=== PATIENT | female | born 1985 | race Caucasian/White ===

== ENCOUNTER 2018-06-06 15:56 | Observation (INO) | payer OTHER, MEDICAID, SELFPAY ==
[2018-06-06] VITALS (13 sets, daily range): BP systolic 110–183; BP diastolic 75–115; PULSE 73–110; RESP 8–21; TEMP 35.3–36.4; O2SAT 94–100
--- NOTE | 2018-06-06 | DI.CT.S_ITS ---
PROCEDURE: CT HEAD/BRAIN WO CON INDICATIONS: ALTERED MENTAL STATUS TECHNIQUE: Noncontrast 4.5 mm thick angled axial sections acquired from the foramen magnum to the vertex, with coronal and sagittal reformats. For radiation dose reduction, the following was used: automated exposure control, adjustment of mA and/or kV according to patient size. COMPARISON: None. FINDINGS: Image quality: Excellent. CSF spaces: Basal cisterns are patent. No extra-axial fluid collections. Ventricles are normal in size and shape. Brain: No intracranial hemorrhage, mass, or mass effect. Muse-white matter interface is preserved. Skull and face: Calvarium and visualized facial bones are intact, without suspicious lesions. Sinuses: Visualized sinuses demonstrate a minimal air-fluid level within the visualized left maxillary sinus.. IMPRESSION: 1. No acute intracranial abnormality. 2. Minimal air-fluid level partially visualized in the left maxillary sinus suggestive of acute sinusitis. Dictated by: Anam Stinson M.D. on 06/06/2018 at 17:55 Approved by: Anam Stinson M.D. on 06/06/2018 at 17:56
[2018-06-06] MEDS: NALOXONE 0.4 MG/ML VIAL 2 MG NASAL (16:12)
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
[2018-06-06] MEDS: NALOXONE 1 MG/ML SYRINGE IV ×2 (16:38→18:14)
[2018-06-06] MEDS: SODIUM CHLORIDE 0.9% 1,000 ML 1000 ML IV (16:41)
--- NOTE | 2018-06-06 17:05 | PC.NURSE ---
Running note admission to present: Pt dropped off to ED. Pt initially unresponsive to all stimulation. Airway opened by RN. Pt w/ wet hair and wet skin and clothing. Cold to touch. Poor respiroatory effort. Sternal rub w/ increased responsiveness. Narcan 2 mg nasally (1 mg each nostril) w/ minimal responsiveness. Placed on monitor w/ CO2 monitoring. CO2 noted to be 50-70 despite rr 12-14. Continues to be poorly responsive. MD mo in to evaluate. Placed on 4 l nc oxygen. Continued to stimulate. Difficult to get IV r/t previous track valencia / scarring. #20g iv placed right foot. Unable to draw labs. Narcan 1 mg iv push given w/ good effect. Pt then awake. Disoriented to time, place. Oriented to person and gave us name and . Pt voided on bedpan. Noted glucose 3+. Pt states she is insulin dependent diabetic.
--- NOTE | 2018-06-06 17:49 | PC.NURSE ---
Accompanied patient on radiation monitor and oxygen to CT exam. Remained with patient for the duration of the procedure.
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
--- NOTE | 2018-06-06 18:22 | PC.NURSE ---
Pt becoming more drowsy, end tidal at 58-60. Provider notified. Narcan ordered and administered. Pt responding to Narcan. End tidal at 34.
--- NOTE | 2018-06-06 18:25 | PC.NURSE ---
1630 Placed Mazariegos catheter with temperature sensor. Temperature at 96.5 internally. Cecilia nagy warming initiated. Warmed IV fluids used. Pt internal temp now at 97.5.
[2018-06-06 18:27] LABS: Bacteria Urine Many (>30); Culture Indicated Urine Specimen Cultured; RBC Urine 5-10/HPF (0-5/HPF); Squamous Epithelial Cell Urine 0-1 /HPF; WBC Urine 5-10/HPF (0-5/HPF)
--- NOTE | 2018-06-06 18:28 | DI.RAD.S_ITS ---
PROCEDURE: XR CHEST 1V INDICATIONS: frothy sputum, ? aspiration, overdose. TECHNIQUE: One view of the chest was acquired. COMPARISON: None. FINDINGS: Surgical changes and devices: None. Lungs and pleura: No pleural effusions or pneumothorax. There are a few linear left cardiac opacities which may represent atelectasis or possible aspiration. Mediastinum: Mediastinal contours appear normal. Heart size is normal. Bones and chest wall: No suspicious bony lesions. Overlying soft tissues appear unremarkable. There is gaseous distention of the stomach. IMPRESSION: 1. Linear left retrocardiac opacities compatible with atelectasis or mild aspiration. Dictated by: Anam Stinson M.D. on 06/06/2018 at 20:08 Approved by: Anam Stinson M.D. on 06/06/2018 at 20:09
[2018-06-06] MEDS: NALOXONE IV (18:34)
[2018-06-06] MEDS: SODIUM CHLORIDE 0.9% IV (18:34)
[2018-06-06 18:50] LABS: Urine Amphetamines Positive (Negative); Urine Barbiturates Negative (Negative); Urine Benzodiazepines Positive (Negative); Urine Cocaine Negative (Negative); Urine MDMA Negative (Negative); Urine Methadone Negative (Negative); Urine Methamphetamines Positive (Negative); Urine Morphine/Opi cutoff 2000 Positive (Negative); Urine Oxycodone Positive (Negative); Urine Phencyclidine Negative (Negative); Urine Tetrahydrocannabinol Positive (Negative); Urine Tricyclic Antidepressant Negative (Negative)
[2018-06-06 20:06] LABS: Add Manual Diff / Slide Review NO; Basophils Percent Auto 0.6 % (0-2); Eosinophils Percent Auto 0.5 % (2-4); Hematocrit 32.1 % (36-46); Hemoglobin 10.7 g/dL (12.0-16.0); Lymphocytes Percent Auto 22.6 % (25-40); Mean Corpuscular HGB Conc 33.2 % (30-36); Mean Corpuscular Hemoglobin 27.7 PG (26-34); Mean Corpuscular Volume 83.3 fL (80-100); Monocytes Percent Auto 6.1 % (3-14); Neutrophils Absolute Auto 8200 /uL (3000-5900); Neutrophils Percent Auto 70.2 % (50-75); Platelet Count 293 X10^3/uL (150-400); Red Blood Cell Count 3.86 X10^6/uL (4.0-5.2); Red Cell Distribution Width 15.2 % (11.6-14.8); White Blood Cell Count 11.7 X10^3/uL (4.5-11.0)
--- NOTE | 2018-06-06 20:10 | PC.NURSE ---
Dr Zavala at bedside to perform femoral stick to obtain blood for lab. Pt tolerated well. Blood specimens sent to lab. Pressure held to R femoral art stick for 10 minutes, no active bleeding at this time.
[2018-06-06 20:20] LABS: Acetaminophen < 10 ug/mL (10-30); Alanine Aminotransferase 38 IU/L (9-52); Albumin 3.5 g/dL (3.5-5.0); Albumin Globulin Ratio 1.2 (1.0-2.8); Alkaline Phosphatase 99 U/L (38-126); Aspartate Aminotransferase 39 IU/L (14-36); Bilirubin Total 0.2 mg/dL (0.2-1.3); Blood Urea Nitrogen 20 mg/dL (7-17); Calcium 7.8 mg/dL (8.4-10.2); Carbon Dioxide 28 mmol/L (22-32); Chloride 102 mmol/L (98-107); Estimated Glomerular Filt Rate > 60.0 mL/min (>60); Ethanol (ETOH) < 10 mg/dL; Globulin 2.9 g/dL (1.7-4.1); Glucose 203 mg/dL (70-100); HEMOLYSIS < 15 (0-50); Potassium 4.1 mmol/L (3.4-5.1); Sodium 139 mmol/L (137-145); Total Protein 6.4 g/dL (6.3-8.2)
[2018-06-06 20:23] LABS: Salicylate < 1.0 mg/dL (<20)
--- NOTE | 2018-06-06 20:23 | PC.NURSE ---
Addendum entered by Bhargavi Macias R.N. 06/06/18 20:42: 2030 SANE nurse in with pt and construction technician. Original Note: activities therapist here. SANE nurse here.
[2018-06-06] MEDS: NALOXONE 1 MG/ML SYRINGE 2 MG IV (22:51)
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
[2018-06-06] MEDS: AZITHROMYCIN 250 MG TABLET 1000 MG PO (23:50)
[2018-06-06] MEDS: LEVONORGESTREL 1.5 MG TABLET PO (23:53)
[2018-06-07] VITALS (9 sets, daily range): BP systolic 102–144; BP diastolic 57–95; PULSE 90–108; RESP 12–20; TEMP 36.5–37.5; O2SAT 96–100; BMI 30.9
--- NOTE | 2018-06-07 02:39 | PC.ADMIT ---
Addendum entered by Cortney Foote R.N. 06/07/18 04:04: 0335 Influenza vaccine given, vaccine information sheet provided. Original Note: [address] Admission Note: The patient,Jonna Hughes,33 y/o, was given written information regarding hospital policies, unit procedures and contact persons. Patient's smoking status: Current every day smoker. Vital Signs - 8 hr 06/06/18 19:15 06/06/18 21:30 06/06/18 21:40 Temperature 97.6 F Pulse Rate 107 H 108 H 103 H Respiratory Rate 14 18 11 L Blood Pressure Blood Pressure [Left Arm] 130/98 H 120/108 H 110/75 Pulse Oximetry 100 95 100 06/06/18 23:00 06/07/18 00:15 06/07/18 00:30 Temperature 98 F Pulse Rate 104 H 106 H 104 H Respiratory Rate 14 15 20 Blood Pressure 140/95 H Blood Pressure [Left Arm] 112/82 Pulse Oximetry 100 98 98 0030 pt arrived to room 105 from the ER via a stretcher, able to stand pivot transfer herself to the bed. Pt is escorted by a pt advocate with [facility], her number will be on the chart, her name is Татьяна and she would be willing to assist in finding an appropriate intermediate for this pt on discharge, encouraged SS to consult with her. Pt arrives awake, alert, and generally can answer questions, occasionally will nod off briefly but wakes up. Pt reports that she is starting to remember the activities of the last two days, tearful at times. CIWA score 1, mild anxiety. Pt is concerned about going through withdrawal as she reports going through alcohol and drug withdrawals multiple times. Placed on contact precautions for MRSA in nares. Mazariegos patent. PICC HL at this time until meds arrive. Bed alarm, pt reports history of falls.
[2018-06-07] MEDS: CEFTRIAXONE 1 GM/50 ML FROZ.PIGGY IV (03:06)
[2018-06-07] MEDS: QUETIAPINE 25 MG TABLET 50 MG PO (03:06)
[2018-06-07] MEDS: cloNIDine 0.1 MG TABLET PO (03:07)
[2018-06-07] MEDS: MAGNESIUM SULFATE 2 GM, FOLIC ACID 1 MG, THIAMINE 100 MG, MULTIVITAMIN 10 ML in SODIUM ... IV (03:36)
[2018-06-07] MEDS: INFLUENZA VACCINE 0.5 ML SYRINGE IM (03:38)
[2018-06-07] MEDS: chlordiazePOXIDE 25 MG CAPSULE 50 MG PO (06:21)
[2018-06-07] MEDS: PANTOPRAZOLE 40 MG TABLET PO (06:22)
[2018-06-07 06:53] LABS: Add Manual Diff / Slide Review NO; Basophils Percent Auto 1.2 % (0-2); Eosinophils Percent Auto 1.9 % (2-4); Hematocrit 30.8 % (36-46); Hemoglobin 10.1 g/dL (12.0-16.0); Lymphocytes Percent Auto 32.7 % (25-40); Mean Corpuscular HGB Conc 32.7 % (30-36); Mean Corpuscular Hemoglobin 27.6 PG (26-34); Mean Corpuscular Volume 84.3 fL (80-100); Monocytes Percent Auto 5.8 % (3-14); Neutrophils Absolute Auto 5400 /uL (3000-5900); Neutrophils Percent Auto 58.4 % (50-75); Platelet Count 268 X10^3/uL (150-400); Red Blood Cell Count 3.65 X10^6/uL (4.0-5.2); Red Cell Distribution Width 14.6 % (11.6-14.8); White Blood Cell Count 9.3 X10^3/uL (4.5-11.0)
[2018-06-07 07:00] LABS: Alanine Aminotransferase 30 IU/L (9-52); Albumin 3.2 g/dL (3.5-5.0); Albumin Globulin Ratio 1.1 (1.0-2.8); Alkaline Phosphatase 85 U/L (38-126); Aspartate Aminotransferase 31 IU/L (14-36); BUN Creatinine Ratio 36.7 (6-22); Bilirubin Total 0.2 mg/dL (0.2-1.3); Blood Urea Nitrogen 22 mg/dL (7-17); Calcium 7.9 mg/dL (8.4-10.2); Carbon Dioxide 27 mmol/L (22-32); Chloride 103 mmol/L (98-107); Estimated Glomerular Filt Rate > 60.0 mL/min (>60); Globulin 2.8 g/dL (1.7-4.1); Glucose 287 mg/dL (70-100); HEMOLYSIS < 15 (0-50); Potassium 4.1 mmol/L (3.4-5.1); Sodium 137 mmol/L (137-145)
[2018-06-07] MEDS: INSULIN ASPART 100 UNIT/ML INSULN PEN SUBCUT ×5 (08:37→17:51)
[2018-06-07] MEDS: HEPARIN 5,000 UNIT/ML VIAL 5000 UNIT SUBCUT ×2 (08:37→20:52)
[2018-06-07] MEDS: NYSTATIN POWDER 30 GM 1 APPLIC TOP (08:40)
[2018-06-07] MEDS: INSULIN GLARGINE 100 UNIT/ML 3ML PEN 20 UNIT SUBCUT (10:01)
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
--- NOTE | 2018-06-07 17:53 | PC.NURSE ---
Pt to be transferred to acute care unit, report called to Isabel BEDOLLA. VSS. Drowsy but easily arousable. Eating dinner.
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
--- NOTE | 2018-06-07 19:02 | PC.NURSE ---
1820- Patient arrived to room 228 alert and cooperative. Denies discomfort at this time. Will monitor.
[2018-06-07] MEDS: DOCUSATE 100 MG CAPSULE PO (20:54)
[2018-06-08 00:15] VITALS: BP 130/89; PULSE 107; RESP 19; TEMP 36.7; O2SAT 99
[2018-06-08 04:00] VITALS: BP 140/84; PULSE 98; RESP 18; TEMP 36.9; O2SAT 98
--- NOTE | 2018-06-08 05:58 | PC.NURSE ---
Pt. A&OX3. denied nausea or pain. pt had some soup, turkey sandwich and no sugar ice cream. She had some dizziness at the beginning of the shift. CIWA: 1 , kept on seizure precaution. pt able to make needs known. call light in reach.
[2018-06-08 07:35] VITALS: BP 129/76; PULSE 93; RESP 15; TEMP 36.8; O2SAT 98
[2018-06-08] MEDS: INSULIN ASPART 100 UNIT/ML INSULN PEN SUBCUT ×2 (09:29→13:01)
[2018-06-08] MEDS: FOLIC ACID 1 MG TABLET PO (09:29)
[2018-06-08] MEDS: HEPARIN 5,000 UNIT/ML VIAL 5000 UNIT SUBCUT (09:29)
[2018-06-08] MEDS: MULTIVITAMIN 1 TABLET 1 TAB PO (09:29)
[2018-06-08] MEDS: DOCUSATE 100 MG CAPSULE PO (09:29)
[2018-06-08] MEDS: THIAMINE 100 MG TABLET PO (09:29)
[2018-06-08] MEDS: INSULIN GLARGINE 100 UNIT/ML 3ML PEN 20 UNIT SUBCUT (09:30)
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
[2018-06-08 11:45] VITALS: PULSE 87; RESP 15; TEMP 36.7; O2SAT 99
--- NOTE | 2018-06-08 13:06 | PC.NURSE ---
Shift Note: News Librarianarnold Ferreira here to discuss patient admission, pt verbalized that RN could disclose medical information to him. Discussed pt admission and status as documented in admission and nursing notes. Lynne Ferreira took photos of patient and antecubital space only.
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
== END 2018-06-08 14:59 | disposition home or self-care (01) ==
LOC: ED 19:21 → ICU 06-07 07:59 → AC 06-07 12:12
PROVIDERS: Admitting Provider Nurse Practitioner Gerontology; Emergency Provider Emergency Medicine; Visit Provider Nurse Practitioner Gerontology
DX: T40.601A Poisoning by unspecified narcotics, accidental (unintentional), initial encounter (principal); T43.621A Poisoning by amphetamines, accidental (unintentional), initial encounter; T42.4X1A Poisoning by benzodiazepines, accidental (unintentional), initial encounter; R40.0 Somnolence; Y92.9 Unspecified place or not applicable; R40.2352 Coma scale, best motor response, localizes pain, at arrival to emergency department; R40.2112 Coma scale, eyes open, never, at arrival to emergency department; R40.2222 Coma scale, best verbal response, incomprehensible words, at arrival to emergency department; F10.20 Alcohol dependence, uncomplicated; Z59.0 Homelessness; E11.9 Type 2 diabetes mellitus without complications; Z79.4 Long term (current) use of insulin; D64.9 Anemia, unspecified
CPT/HCPCS: 36592; 51701; 70450; 71045; 80053; 80305; 80320; 80329; 81003; 81015; 81025; 82962; 83036; 85025; 87040; 87070; 87077; 87086; 87147; 87186; 87205; 87797; 90471; 90656; 96361; 96365; 96366; 96376; 99285; 99291; 99292; G0378; G0480; J1644; J2310; J3475; Q2038